=== PATIENT | female | born 1950 | race Caucasian/White ===

== ENCOUNTER 2021-04-18 10:36 | Outpatient (CLI) | payer MEDICARE | END 2021-04-18 10:37 | disposition home or self-care (01) | LOC: CSHMAMMO 10:36 | PROVIDERS: ATTEND Obstetrics & Gynecology | DX: Z12.31 Encounter for screening mammogram for malignant neoplasm of breast (principal); Z85.71 Personal history of Hodgkin lymphoma | CPT/HCPCS: 77063; 77067 ==

== ENCOUNTER 2021-06-13 13:32 | Outpatient (CLI) | payer MEDICARE, OTHER | END 2021-06-13 13:33 | disposition home or self-care (01) | LOC: CSHMAMMO 13:32 | PROVIDERS: ATTEND Nurse Practitioner Family | DX: Z13.820 Encounter for screening for osteoporosis (principal); M85.851 Other specified disorders of bone density and structure, right thigh; M85.852 Other specified disorders of bone density and structure, left thigh | CPT/HCPCS: 77080 ==

== ENCOUNTER 2022-05-08 10:32 | Outpatient (CLI) | payer MEDICARE, OTHER | END 2022-05-08 10:33 | disposition home or self-care (01) | LOC: CSHMAMMO 10:32 | PROVIDERS: ATTEND Obstetrics & Gynecology | DX: Z12.31 Encounter for screening mammogram for malignant neoplasm of breast (principal); Z80.3 Family history of malignant neoplasm of breast; Z85.71 Personal history of Hodgkin lymphoma | CPT/HCPCS: 77063; 77067 ==

== ENCOUNTER 2022-06-13 11:00 | Outpatient (CLI) | payer MEDICARE, OTHER | END 2022-06-13 11:01 | disposition home or self-care (01) | LOC: CSHMAMMO 11:00 | PROVIDERS: ATTEND Obstetrics & Gynecology | DX: Z13.820 Encounter for screening for osteoporosis (principal); M85.852 Other specified disorders of bone density and structure, left thigh; M85.851 Other specified disorders of bone density and structure, right thigh | CPT/HCPCS: 77080 ==

== ENCOUNTER 2024-05-13 11:21 | Outpatient (CLI) | payer MEDICARE, OTHER | END 2024-05-13 11:22 | disposition home or self-care (01) | LOC: CSHMAMMO 11:21 | PROVIDERS: ATTEND Obstetrics & Gynecology | DX: Z12.31 Encounter for screening mammogram for malignant neoplasm of breast (principal); R92.8 Other abnormal and inconclusive findings on diagnostic imaging of breast | CPT/HCPCS: 77063; 77067 ==